=== PATIENT | male | born 1955 | race Caucasian/White ===

== ENCOUNTER 2021-04-12 13:54 | Inpatient (IN) | payer MEDICAID ==
[~2021-04-12] VITALS: Ht 167.6 cm; Wt 73.5 kg
--- NOTE | 2021-04-12 14:36 | NUR ---
DR Judd at the bedside for MSE.
[2021-04-12] MEDS ORDERED: CLOP75TA15 PO (15:36)
[2021-04-12] MEDS ORDERED: GABA-532 PO (15:36)
[2021-04-12] MEDS ORDERED: DOCU250C14 PO (15:36)
[2021-04-12] MEDS ORDERED: THIA100T13 PO (15:36)
[2021-04-12] MEDS ORDERED: BISA10SU61 RC (15:36)
[2021-04-12] MEDS ORDERED: CHOL500050 PO (15:36)
[2021-04-12] MEDS ORDERED: IPRA3AMP23 IH ×2 (15:36→15:37)
[2021-04-12] MEDS ORDERED: DILT30TA2 PO (15:37)
[2021-04-12] MEDS ORDERED: ATOR40TA PO (15:37)
[2021-04-12] MEDS ORDERED: PREG75CA PO (15:37)
[2021-04-12] MEDS ORDERED: INSU100C SQ (15:37)
[2021-04-12] MEDS ORDERED: NPH,100V SQ (15:37)
[2021-04-12] MEDS ORDERED: MULT-213 PO (15:37)
[2021-04-12] MEDS ORDERED: LISI2.5T2 PO (15:37)
[2021-04-12] MEDS ORDERED: MAGN400O6 PO (15:37)
[2021-04-12] MEDS ORDERED: DEXT15DR6 EACHEYE (15:37)
[2021-04-12] MEDS ORDERED: POLY17PO4 PO (15:37)
[2021-04-12] MEDS ORDERED: MELA3TAB41 PO (15:37)
[2021-04-12] MEDS ORDERED: DIPH25CA83 PO (15:37)
[2021-04-12] MEDS ORDERED: CHLO473M3 MM (15:37)
[2021-04-12] MEDS ORDERED: ONDA4TAB5 PO (15:37)
[2021-04-12] MEDS ORDERED: FERROUS SULFATE PO (15:37)
[2021-04-12] MEDS ORDERED: IBUP-1953 PO (15:37)
[2021-04-12] MEDS ORDERED: HYDR-4209 PO (15:37)
[2021-04-12] MEDS ORDERED: FAMO20TA8 PO (15:37)
[2021-04-12] MEDS ORDERED: FURO-152 PO (15:37)
[2021-04-12 15:57] LABS: ABG HCO3 26.5 mmol/L; ABG PCO2 45.5 mmHg (35.0-45.0); ABG PH 7.383 (7.350-7.450); ABG PO2 72.8 mmHg (75.0-100.0); ABG SITE RIGHT RADIAL; ABG TOTAL HEMOGLOBIN 13.3 G/dL (13.5-18.0); COHb 0.8 % (0.5-1.5); MetHb 0.3 % (0.0-1.5); O2Hb 93.6 % (94.0-97.0); VENT MODE Room Air
[2021-04-12 16:01] LABS: CREATININE 0.9 mg/dL (0.6-1.3); POTASSIUM 3.7 mmol/L (3.5-5.1)
[2021-04-12 16:05] LABS: HEMATOCRIT 37.7 % (36.7-47.1); MEAN CORPUSCULAR HEMOGLOBIN 32.1 uug (23.8-33.4); MEAN CORPUSCULAR VOLUME 95.1 fL (73.0-96.2); PLATELET COUNT (AUTO) 240 K/uL (152-348)
--- NOTE | 2021-04-12 16:07 | NUR ---
Pt agreed and signed consent for CT of neck w/ contrast, placed in the chart.
[2021-04-12 16:13] LABS: BILIRUBIN,DIRECT 0.1 mg/dL (0.0-0.2); BILIRUBIN,TOTAL 0.3 mg/dL (0.2-1.0); TOTAL PROTEIN, SERUM 7.7 g/dL (6.4-8.2)
[2021-04-12] MEDS ORDERED: IV NORMAL SALINE 250 ML IV ONE (16:14)
[2021-04-12] MEDS ORDERED: SWABABLE VALVE TRANSFER SET EA MC ONE (16:14)
[2021-04-12] MEDS ORDERED: IOHEXOL 300MG/ML 100 ML INFUS..BTL ONE (16:14)
--- NOTE | 2021-04-12 17:08 | NUR ---
Urine collected and sent to LAB.
[2021-04-12 17:37] LABS: *BILIRUBIN,URIN NEGATIVE (NEGATIVE); *BLOOD, URINE 2+ (NEGATIVE); *CLARITY,URINE SLIGHTLY CLOUDY (CLEAR); *COLOR,URINE LIGHT YELLOW (YELLOW); *KETONES,URINE NEGATIVE (NEGATIVE); *UROBILINOGEN,URINE 0.2 E.U./dl (NORMAL); PH,URINE 7.5 (5.0-8.0); UGLUCOSE NEGATIVE (NEGATIVE)
[2021-04-12 17:38] LABS: LEUKOCYTE ESTERASE ,URINE 4+ (NEGATIVE); NITRITE, URINE POSITIVE (NEGATIVE)
[2021-04-12 18:13] LABS: BACTERIA,URINE MANY /HPF (NONE SEEN); MUCUS,URINE FEW /LPF (0-FEW); RBC,URINE 50-80 /HPF (0-3); SQUAMOUS EPITHELIAL CELL,UR FEW /HPF (NONE SEEN); URINE AMORPHOUS PHOSPHATES MANY /HPF; WBC,URINE TNTC /HPF (0-3)
[2021-04-12] MEDS ORDERED: CEFEPIME HCL 2 G in IV DEXTROSE 5% 100 ML IV ONE (19:00)
[2021-04-12 20:00] VITALS: BP 142/68
[2021-04-12] MEDS ORDERED: ONDANSETRON 4 MG/2 ML VIAL IV PRN (20:00)
[2021-04-12] MEDS ORDERED: MAGNESIUM HYDROXIDE 30 ML LIQUID UDC PO PRN ×2 (20:00→21:30)
[2021-04-12] MEDS ORDERED: ZOLPIDEM 5 MG TABLET PO PRN (20:00)
[2021-04-12] MEDS ORDERED: ACETAMINOPHEN 325 MG TABLET PO PRN (20:00)
[2021-04-12] MEDS ORDERED: Z GUARD REMEDY PASTE 57 GM TUBE TOP PRN (20:00)
[2021-04-12] MEDS: CEFTRIAXONE 1 G in IV DEXTROSE 5% 50 ML IV SCH (21:00)
[2021-04-12] MEDS: AZITHROMYCIN IV 500 MG in IV DEXTROSE 5% 250 ML IV SCH (21:00)
[2021-04-12] MEDS ORDERED: ONDANSETRON HCL 4 MG TABLET PO PRN (21:30)
[2021-04-12] MEDS ORDERED: MELATONIN 3 MG TABLET PO PRN (21:30)
[2021-04-12] MEDS ORDERED: MIRALAX 17 GM POWD.PACK PO PRN (21:30)
[2021-04-12] MEDS ORDERED: BISACODYL 10 MG SUPP.RECT RC PRN (21:30)
[2021-04-12] MEDS ORDERED: diphenhydrAMINE 25 MG CAP PO PRN (21:30)
[2021-04-12] MEDS ORDERED: IBUPROFEN 400 MG TABLET PO PRN (21:30)
[2021-04-13] VITALS: BP 148/60
[2021-04-13] MEDS ORDERED: CEFEPIME HCL 1 G VIAL ONE (02:48)
[2021-04-13 04:00] VITALS: BP 143/74
[2021-04-13 06:35] LABS: MEAN CORPUSCULAR HEMOGLOBIN 31.7 uug (23.8-33.4); MEAN CORPUSCULAR VOLUME 94.6 fL (73.0-96.2); PLATELET COUNT (AUTO) 223 K/uL (152-348)
[2021-04-13] MEDS: PREGABALIN 25 MG CAPSULE PO SCH ×3 (07:00→23:10)
[2021-04-13 07:02] LABS: THYROID STIMULATING HORMONE 1.86 mIU/mL (0.358-3.740)
[2021-04-13 07:04] LABS: CREATININE 0.9 mg/dL (0.6-1.3); MAGNESIUM 2.1 mg/dL (1.8-2.4); PHOSPHOROUS 4.3 mg/dL (2.5-4.9); POTASSIUM 3.7 mmol/L (3.5-5.1)
[2021-04-13] MEDS: PANTOPRAZOLE SODIUM 40 MG TABLET.DR PO SCH (07:04)
--- NOTE | 2021-04-13 07:09 | NUR ---
SHIFT NOTES: PT IS ALERT AND ORIENTED X4. PT CAME FROM ER WITH DX OF UTI, AND TRACHEAL STENOSIS. PT IS ON 02 2L NC TOLERATING WELL. PT IS ON TELEMONITOR WHICH SHOWS SB BUT NO SIGNS OF DISTRESS NOTED. PT HAS IV OF D51/2 NS INFUSING AT 100ML AND HOUR. TOLERATING WELL. RT AND LT BUTTOCK HAS OLD SCARS. PICTURE WERE TAKEN NO SIGNS ULCER. NOTED.
--- NOTE | 2021-04-13 07:30 | NUR ---
Sleeping. O2 at 2L/NC. NPO maintained, pending ENT consult/procedure
[2021-04-13] MEDS ORDERED: INSULIN NPH 1,000 UNITS/10 ML VIAL SQ SCH (09:00)
[2021-04-13] MEDS ORDERED: FERROUS SULFATE PO SCH (09:00)
[2021-04-13] MEDS: DILTIAZEM HCL 30 MG TABLET PO SCH ×5 (09:00→20:38)
[2021-04-13] MEDS: GABAPENTIN 100 MG CAPSULE PO SCH ×3 (09:00→17:44)
[2021-04-13 12:00] VITALS: BP 108/54
[2021-04-13] MEDS: IV D5 1/2 NS 1000 ML 1,000 ML IV PRN ×2 (12:30→19:00)
--- NOTE | 2021-04-13 12:30 | NUR ---
ENT consult as out patient per Dr. Villarreal. ST eval done at bedside, soft diet ordered with precaution taught to patient. Able to eat lunch with no coughing.
[2021-04-13] MEDS: DOCUSATE SODIUM 250 MG CAPSULE PO SCH ×2 (12:35→20:42)
[2021-04-13] MEDS: INSULIN NPH 1,000 UNITS/10 ML VIAL SQ SCH ×2 (12:35→17:46)
[2021-04-13] MEDS: FERROUS SULFATE 300 MG/5 ML LIQUID UDC PO SCH (12:35)
[2021-04-13] MEDS: MULTIVIT, IRON, MIN NO. 8, FA TABLET PO SCH (12:35)
[2021-04-13] MEDS: CHLORHEXIDINE GLUCONATE 15 ML MOUTHWASH MM SCH ×2 (12:35→17:49)
[2021-04-13] MEDS: THIAMINE HCL 100 MG TABLET PO SCH (12:36)
[2021-04-13] MEDS: FAMOTIDINE 20 MG TABLET PO SCH ×2 (12:36→20:38)
[2021-04-13] MEDS: CHOLECALCIFEROL 1,000 UNIT TABLET PO SCH (12:36)
[2021-04-13] MEDS: FUROSEMIDE 20 MG TABLET PO SCH (12:36)
[2021-04-13] MEDS: LISINOPRIL 5 MG TABLET PO SCH (12:42)
[2021-04-13] MEDS ORDERED: POLYVINYL ALCOHOL OPHT DROPS 15 ML BOTTLE EACHEYE PRN (15:45)
[2021-04-13] MEDS ORDERED: HOME MED MISCELLANEOUS XX SCH ×2 (15:45)
[2021-04-13 16:00] VITALS: BP 136/77
[2021-04-13] MEDS ORDERED: IPRATROPIUM BROMIDE 0.5 MG/2.5 ML NEBU NEB PRN (16:00)
[2021-04-13] MEDS ORDERED: ALBUTEROL SULFATE 2.5 MG/3 ML NEBU NEB PRN (16:00)
[2021-04-13] MEDS ORDERED: DEXTROSE 50% 50 ML DISP.SYRIN IV PRN (17:45)
[2021-04-13] MEDS: BLOOD SUGAR DIAGNOSTIC 1 EACH STRIP VI SCH ×2 (18:47→20:48)
--- NOTE | 2021-04-13 18:48 | NUR ---
Eating well, sitting at the edge of bed. Not in distress. Afebrile
--- NOTE | 2021-04-13 19:50 | NUR ---
PATIENT ALERT ORIENTED, NO SOB NO CHEST PAIN, NO COMPLAIN OF PAIN, TELE MONITOR SINUS RAHEEM/SINUS RHYTHM, USES URINAL, NO COUGHING NOTED, CONT HHN TX DONE BY RT TOLERATE WELL. CONT TO MONITOR.
[2021-04-13 20:11] VITALS: BP 120/70
[2021-04-13] MEDS: CEFTRIAXONE 1 G in IV DEXTROSE 5% 50 ML IV SCH (20:33)
[2021-04-13] MEDS: AZITHROMYCIN IV 500 MG in IV DEXTROSE 5% 250 ML IV SCH (20:37)
[2021-04-13] MEDS: ATORVASTATIN 40 MG TABLET PO SCH (20:38)
[2021-04-13] MEDS: ALBUTEROL SULFATE 2.5 MG/3 ML NEBU NEB SCH (21:10)
[2021-04-13] MEDS: IPRATROPIUM BROMIDE 0.5 MG/2.5 ML NEBU NEB SCH (21:10)
[2021-04-14 00:15] VITALS: BP 131/53
[2021-04-14] MEDS: IPRATROPIUM BROMIDE 0.5 MG/2.5 ML NEBU NEB SCH ×4 (01:45→19:21)
[2021-04-14] MEDS: ALBUTEROL SULFATE 2.5 MG/3 ML NEBU NEB SCH ×4 (01:45→19:21)
[2021-04-14] MEDS: HYDROCODONE/APAP 5-325MG TABLET PO PRN ×3 (02:17→20:47)
[2021-04-14 04:51] VITALS: BP 156/63
[2021-04-14] MEDS: PREGABALIN 25 MG CAPSULE PO SCH ×3 (05:37→22:00)
[2021-04-14] MEDS: PANTOPRAZOLE SODIUM 40 MG TABLET.DR PO SCH (06:05)
[2021-04-14] MEDS: BLOOD SUGAR DIAGNOSTIC 1 EACH STRIP VI SCH ×4 (06:06→20:49)
--- NOTE | 2021-04-14 07:05 | NUR ---
PATIENT ALERT ORIENTED, NO SOB NO CHEST PAIN, TELE MONITOR SINUS RYTHYM SINUS RAHEEM. PATIENT HAS NO S/.S OF HYPO/HYPERGYLCEMIA NOTED, WITH EPISODE OF PAIN ON LOWER EXTREMITIES MEDICATED FOR PAIN. PATIENT ABLE TO SWALLOW PILLS ONE AT THE TIME, CONT TO MONITOR.
[2021-04-14 07:10] LABS: HEMATOCRIT 36.6 % (36.7-47.1); MEAN CORPUSCULAR HEMOGLOBIN 32.9 uug (23.8-33.4); MEAN CORPUSCULAR VOLUME 96.9 fL (73.0-96.2); PLATELET COUNT (AUTO) 220 K/uL (152-348)
[2021-04-14 08:28] LABS: CREATININE 0.8 mg/dL (0.6-1.3); MAGNESIUM 2.1 mg/dL (1.8-2.4); PHOSPHOROUS 4.6 mg/dL (2.5-4.9)
[2021-04-14] MEDS: INSULIN NPH 1,000 UNITS/10 ML VIAL SQ SCH ×2 (09:00→16:54)
[2021-04-14 09:08] VITALS: BP 142/67
[2021-04-14] MEDS: FERROUS SULFATE 300 MG/5 ML LIQUID UDC PO SCH (09:30)
[2021-04-14] MEDS: DOCUSATE SODIUM 250 MG CAPSULE PO SCH ×2 (09:31→20:32)
[2021-04-14] MEDS: GABAPENTIN 100 MG CAPSULE PO SCH ×3 (09:31→16:51)
[2021-04-14] MEDS: LISINOPRIL 5 MG TABLET PO SCH (09:31)
[2021-04-14] MEDS: CHOLECALCIFEROL 1,000 UNIT TABLET PO SCH (09:31)
[2021-04-14] MEDS: THIAMINE HCL 100 MG TABLET PO SCH (09:31)
[2021-04-14] MEDS: DILTIAZEM HCL 30 MG TABLET PO SCH ×4 (09:40→20:33)
[2021-04-14] MEDS: FAMOTIDINE 20 MG TABLET PO SCH ×2 (09:42→20:33)
[2021-04-14] MEDS: FUROSEMIDE 20 MG TABLET PO SCH (09:42)
[2021-04-14] MEDS: MULTIVIT, IRON, MIN NO. 8, FA TABLET PO SCH (09:42)
[2021-04-14] MEDS: CHLORHEXIDINE GLUCONATE 15 ML MOUTHWASH MM SCH ×2 (09:42→16:51)
[2021-04-14 10:47] VITALS: BP 142/67
[2021-04-14 11:59] VITALS: BP 130/67
[2021-04-14] MEDS: INSULIN REGULAR, HUMAN 300 UNIT/3 ML VIAL SQ PRN ×2 (12:08→16:56)
[2021-04-14] MEDS: IV D5 1/2 NS 1000 ML 1,000 ML IV PRN (17:08)
--- NOTE | 2021-04-14 18:45 | NUR ---
Patient in bed, Urdu speaking, alert and oriented x 4, pleasant and cooperative upon assessment. IV site on left hand intact. Patient in oxygen via 2L nasal cannula. Patient refused Novolin N 15 units in the morning and regular insulin 2 units lunch time. Notified Dr. Villarreal and awaiting for response. Daughter also made aware.
--- NOTE | 2021-04-14 19:45 | NUR ---
Patient in bed alert and verbally responsive.HOB elevated.Denies SOB .O2 at 2LPM via nc .IV on left wrist patent and intact with IVf infusing well.Received new order from noted and carried out.
[2021-04-14] MEDS: CEFTRIAXONE 1 G in IV DEXTROSE 5% 50 ML IV SCH (20:30)
[2021-04-14 20:32] VITALS: BP 135/69
[2021-04-14] MEDS: ATORVASTATIN 40 MG TABLET PO SCH (20:32)
[2021-04-14] MEDS ORDERED: AZITHROMYCIN 250 MG TABLET PO SCH (21:00)
[2021-04-15 00:10] VITALS: BP 115/63
[2021-04-15] MEDS: IPRATROPIUM BROMIDE 0.5 MG/2.5 ML NEBU NEB SCH ×4 (00:36→19:26)
[2021-04-15] MEDS: ALBUTEROL SULFATE 2.5 MG/3 ML NEBU NEB SCH ×4 (00:36→19:26)
[2021-04-15 04:44] VITALS: BP 124/70
[2021-04-15] MEDS: PREGABALIN 25 MG CAPSULE PO SCH ×3 (05:09→21:01)
--- NOTE | 2021-04-15 05:13 | NUR ---
Patient awake in no apparent distress noted. No BM for 3 days per patient. Refused Miralax and MOM however patient wants dulcolax supp .Patient had large BM after suppository given. Patient ambulates to bathroom.Due meds given but refused lyrica last night .Risk and benefits explained 3x.Patient still refused. All needs anticipated and met accordingly.
[2021-04-15] MEDS: PANTOPRAZOLE SODIUM 40 MG TABLET.DR PO SCH (06:18)
[2021-04-15] MEDS: IV D5 1/2 NS 1000 ML 1,000 ML IV PRN ×2 (06:33→19:09)
[2021-04-15] MEDS: DILTIAZEM HCL 30 MG TABLET PO SCH ×4 (08:48→20:59)
[2021-04-15] MEDS: FERROUS SULFATE 300 MG/5 ML LIQUID UDC PO SCH (08:48)
[2021-04-15] MEDS: FUROSEMIDE 20 MG TABLET PO SCH (08:48)
[2021-04-15] MEDS: DOCUSATE SODIUM 250 MG CAPSULE PO SCH ×2 (08:48→21:00)
[2021-04-15] MEDS: GABAPENTIN 100 MG CAPSULE PO SCH ×3 (08:50→17:08)
[2021-04-15] MEDS: FAMOTIDINE 20 MG TABLET PO SCH ×2 (08:50→21:00)
[2021-04-15] MEDS: MULTIVIT, IRON, MIN NO. 8, FA TABLET PO SCH (08:50)
[2021-04-15] MEDS: CHOLECALCIFEROL 1,000 UNIT TABLET PO SCH (08:50)
[2021-04-15] MEDS: LISINOPRIL 5 MG TABLET PO SCH (08:51)
[2021-04-15] MEDS: THIAMINE HCL 100 MG TABLET PO SCH (08:51)
[2021-04-15] MEDS: BLOOD SUGAR DIAGNOSTIC 1 EACH STRIP VI SCH (08:58)
[2021-04-15] MEDS: CHLORHEXIDINE GLUCONATE 15 ML MOUTHWASH MM SCH ×2 (09:00→17:09)
[2021-04-15 11:29] VITALS: BP 133/70
[2021-04-15] MEDS: HYDROCODONE/APAP 5-325MG TABLET PO PRN ×2 (11:30→21:08)
[2021-04-15 15:58] VITALS: BP 128/56
[2021-04-15] MEDS: CEphaleXIN 500 MG CAPSULE PO SCH (17:08)
--- NOTE | 2021-04-15 18:48 | NUR ---
Patient resting in bed. AOx4. On 2L O2 via NC, saturating at 98-100%. With Left wrist #22 IV access with D5 1/2NS running at 75cc/hr. No signs of acute distress. Patient complained of pain on right knee, North PRN given per order. Patient expressed relief. Call light within reach. Bed alarm on and bed locked in position for safety. Will endorse to incoming shift for continuity of care.
--- NOTE | 2021-04-15 19:30 | NUR ---
Received pt in bed, awake and verbally responsive, able to make needs known. No signs of respiratory distress. No pain or discomfort reported. NSR on tele. IVF infusing well on L wrist. Safety measures initiated, call light within reach.
[2021-04-15 20:17] VITALS: BP 117/69
[2021-04-15] MEDS: ATORVASTATIN 40 MG TABLET PO SCH (21:00)
[2021-04-16 00:09] VITALS: BP 113/59
[2021-04-16] MEDS: IPRATROPIUM BROMIDE 0.5 MG/2.5 ML NEBU NEB SCH ×2 (00:37→07:25)
[2021-04-16] MEDS: ALBUTEROL SULFATE 2.5 MG/3 ML NEBU NEB SCH ×2 (00:37→07:25)
[2021-04-16 04:21] VITALS: BP 111/45
[2021-04-16] MEDS: PREGABALIN 25 MG CAPSULE PO SCH (06:20)
[2021-04-16] MEDS: CEphaleXIN 500 MG CAPSULE PO SCH (06:20)
[2021-04-16] MEDS: PANTOPRAZOLE SODIUM 40 MG TABLET.DR PO SCH (06:20)
[2021-04-16 06:37] LABS: HEMATOCRIT 38.5 % (36.7-47.1); MEAN CORPUSCULAR HEMOGLOBIN 32.6 uug (23.8-33.4); MEAN CORPUSCULAR VOLUME 95.8 fL (73.0-96.2); PLATELET COUNT (AUTO) 220 K/uL (152-348)
[2021-04-16 06:49] LABS: MAGNESIUM 2.1 mg/dL (1.8-2.4); PHOSPHOROUS 4.2 mg/dL (2.5-4.9); POTASSIUM 4.1 mmol/L (3.5-5.1)
--- NOTE | 2021-04-16 06:53 | NUR ---
Pt slept through the night, tolerated due medications well. No signs of acute distress. Sinus Koffi on Tele. IVF infusing well on L wrist. Breathing treatment administered by RT. Repositioning done as needed. Safety measures maintained at all times. All needs attended to and met.
[2021-04-16] MEDS: MULTIVIT, IRON, MIN NO. 8, FA TABLET PO SCH (08:08)
[2021-04-16] MEDS: BLOOD SUGAR DIAGNOSTIC 1 EACH STRIP VI SCH (08:08)
[2021-04-16] MEDS: GABAPENTIN 100 MG CAPSULE PO SCH (08:08)
[2021-04-16] MEDS: THIAMINE HCL 100 MG TABLET PO SCH (08:08)
[2021-04-16] MEDS: FAMOTIDINE 20 MG TABLET PO SCH (08:08)
[2021-04-16] MEDS: DOCUSATE SODIUM 250 MG CAPSULE PO SCH (08:08)
[2021-04-16] MEDS: CHOLECALCIFEROL 1,000 UNIT TABLET PO SCH (08:09)
[2021-04-16] MEDS: FUROSEMIDE 20 MG TABLET PO SCH (08:09)
[2021-04-16] MEDS: CHLORHEXIDINE GLUCONATE 15 ML MOUTHWASH MM SCH (08:21)
[2021-04-16] MEDS: DILTIAZEM HCL 30 MG TABLET PO SCH (09:00)
[2021-04-16] MEDS ORDERED: FERROUS SULFATE 325 MG TABEC PO SCH (09:00)
[2021-04-16] MEDS: IV D5 1/2 NS 1000 ML 1,000 ML IV PRN (09:19)
[2021-04-16] MEDS ORDERED: CEPH500C2 PO (09:56)
[2021-04-16] MEDS: LISINOPRIL 5 MG TABLET PO SCH (11:42)
[2021-04-16 11:55] VITALS: BP 129/73
--- NOTE | 2021-04-16 12:16 | NUR ---
dc orders received noted and carried out,dc heplock per md orders rn [facility]and pt.pt left the facility via ambulances in stable condition
== END 2021-04-16 12:15 | DRG 143 ==
LOC: ER 13:54 → TELE3 19:02
PROVIDERS: ADMIT Student in an Organized Health Care Education/Training Program; ATTEND Student in an Organized Health Care Education/Training Program
DX: J95.03 Malfunction of tracheostomy stoma (principal); J96.20 Acute and chronic respiratory failure, unspecified whether with hypoxia or hypercapnia; L89.159 Pressure ulcer of sacral region, unspecified stage; L89.329 Pressure ulcer of left buttock, unspecified stage; L89.319 Pressure ulcer of right buttock, unspecified stage; I69.391 Dysphagia following cerebral infarction; N39.0 Urinary tract infection, site not specified; R13.10 Dysphagia, unspecified; Z20.822 Contact with and (suspected) exposure to COVID-19; E78.5 Hyperlipidemia, unspecified; I10 Essential (primary) hypertension; E11.9 Type 2 diabetes mellitus without complications; Y83.8 Other surgical procedures as the cause of abnormal reaction of the patient, or of later complication, without mention of misadventure at the time of the procedure; Y92.009 Unspecified place in unspecified non-institutional (private) residence as the place of occurrence of the external cause; G47.00 Insomnia, unspecified; Z79.4 Long term (current) use of insulin
CPT/HCPCS: 36415; 36600; 70030-TC; 70491; 71045; 83605; 83735; 84100; 84443; 85025; 87040; 87077; 87086; 87400; 93005; 94640; 94664; A4663; G0378; J0456; J0692; J0696; J1815; J3490; J3590; J7050; J7060; Q0144; Q9967

== ENCOUNTER 2021-05-19 09:22 | Inpatient (IN) | payer MEDICAID, OTHER ==
[~2021-05-19] VITALS: Ht 167.6 cm; Wt 74.8 kg
[~2021-05-19 09:22] MED LIST: ATOR40TA PO; BISA10SU61 RC; CEPH500C2 PO; CHLO473M3 MM; CHOL500050 PO; CLOP75TA15 PO; DEXT15DR6 EACHEYE; DILT30TA2 PO; DIPH25CA83 PO; DOCU250C14 PO; FAMO20TA8 PO; FERROUS SULFATE PO; FURO-152 PO; GABA-532 PO; HYDR-4209 PO; IBUP-1953 PO; INSU100C SQ; IPRA3AMP23 IH; LISI2.5T14 PO; MAGN400O6 PO; MELA3TAB41 PO; MULT-213 PO; NPH,100V SQ; ONDA4TAB5 PO; POLY17PO4 PO; PREG75CA PO; THIA100T13 PO
[2021-05-19] MEDS ORDERED: ALBUTEROL SULFATE 2.5 MG/ 0.5 ML NEBU NEB ONE (09:45)
[2021-05-19 09:56] LABS: HEMATOCRIT 37.9 % (36.7-47.1); MEAN CORPUSCULAR HEMOGLOBIN 32.9 uug (23.8-33.4); MEAN CORPUSCULAR VOLUME 95.7 fL (73.0-96.2); PLATELET COUNT (AUTO) 223 K/uL (152-348)
[2021-05-19] MEDS ORDERED: ALBUTEROL SULFATE 2.5 MG/3 ML NEBU ONE (10:03)
[2021-05-19 10:04] LABS: CREATININE 0.9 mg/dL (0.6-1.3); POTASSIUM 3.8 mmol/L (3.5-5.1)
[2021-05-19 10:10] LABS: BILIRUBIN,DIRECT 0.1 mg/dL (0.0-0.2); BILIRUBIN,TOTAL 0.4 mg/dL (0.2-1.0); TOTAL PROTEIN, SERUM 7.5 g/dL (6.4-8.2)
[2021-05-19 10:55] LABS: *BILIRUBIN,URIN NEGATIVE (NEGATIVE); *BLOOD, URINE NEGATIVE (NEGATIVE); *CLARITY,URINE CLEAR (CLEAR); *COLOR,URINE YELLOW (YELLOW); *KETONES,URINE NEGATIVE (NEGATIVE); *UROBILINOGEN,URINE 0.2 E.U./dl (NORMAL); LEUKOCYTE ESTERASE ,URINE NEGATIVE (NEGATIVE); NITRITE, URINE NEGATIVE (NEGATIVE); UGLUCOSE NEGATIVE (NEGATIVE)
[2021-05-19] MEDS ORDERED: levoFLOXacin 750 MG/D5W 150 ML PIGGYBACK IV ONE (11:30)
[2021-05-19] MEDS ORDERED: levoFLOXacin 750MG/D5W 150 ML IV ONE (11:44)
[2021-05-19] MEDS ORDERED: BENZONATATE 100 MG CAPSULE PO ONE (12:45)
[2021-05-19] MEDS ORDERED: BENZONATATE 100 MG CAPSULE ONE (12:53)
--- NOTE | 2021-05-19 14:03 | NUR ---
Pt resting in bed, no complaints, no distress noted. Pt states that medication helped his choking/cough. Gave pt lunch tray.
--- NOTE | 2021-05-19 14:41 | NUR ---
Gave report to Sommer BRITTON
--- NOTE | 2021-05-19 15:15 | NUR ---
ADMITTED FROM [facility] VIA ER A 65 YO MALE WITH ADMITTING DX OF PNEUMONIA AWAKE ALERT AND VERBALLY RESPONSIVE, ABLE TO PARTICIPATE WITH ADMISSION ASSESSMENT. SR ON MONITOR, WILL NOTIFY HOSPITALIST OF ADMISSION
[2021-05-19] MEDS ORDERED: ONDANSETRON 4 MG/2 ML VIAL IV PRN (15:45)
[2021-05-19] MEDS ORDERED: HYDROCODONE/APAP 5-325MG TABLET PO PRN (15:45)
[2021-05-19] MEDS ORDERED: IBUPROFEN 400 MG TABLET PO PRN (15:45)
[2021-05-19] MEDS ORDERED: MIRALAX 17 GM POWD.PACK PO PRN (15:45)
[2021-05-19] MEDS ORDERED: BISACODYL 10 MG SUPP.RECT RC PRN (15:45)
[2021-05-19] MEDS ORDERED: ACETAMINOPHEN 325 MG TABLET PO PRN (15:45)
[2021-05-19] MEDS ORDERED: DEXTROSE 50% 50 ML DISP.SYRIN IV PRN (15:45)
[2021-05-19] MEDS ORDERED: MAGNESIUM HYDROXIDE 30 ML LIQUID UDC PO PRN (15:45)
[2021-05-19] MEDS ORDERED: MELATONIN 3 MG TABLET PO PRN (15:45)
[2021-05-19] MEDS ORDERED: diphenhydrAMINE 25 MG CAP PO PRN (15:45)
[2021-05-19 16:00] VITALS: BP 143/71
[2021-05-19] MEDS ORDERED: PIPERACILLIN SODIUM/TAZOBACTAM 3.375 G in IV DEXTROSE 5% 50 ML IV ONE (17:00)
[2021-05-19] MEDS: BLOOD SUGAR DIAGNOSTIC 1 EACH STRIP VI SCH ×2 (17:07→20:46)
[2021-05-19] MEDS: INSULIN NPH 1,000 UNITS/10 ML VIAL SQ SCH (17:09)
[2021-05-19] MEDS: INSULIN REGULAR, HUMAN 300 UNIT/3 ML VIAL SQ PRN (17:12)
[2021-05-19 20:15] VITALS: BP 102/60
[2021-05-19] MEDS: DOCUSATE SODIUM 100 MG CAPSULE PO SCH (20:42)
[2021-05-19] MEDS: FAMOTIDINE 20 MG TABLET PO SCH (20:42)
[2021-05-19] MEDS: CHLORHEXIDINE GLUCONATE 15 ML MOUTHWASH MM SCH (20:43)
[2021-05-19] MEDS ORDERED: DOCUSATE SODIUM 250 MG CAPSULE PO SCH (21:00)
[2021-05-19] MEDS ORDERED: ATORVASTATIN 40 MG TABLET PO SCH (21:00)
[2021-05-19] MEDS: PREGABALIN 25 MG CAPSULE PO SCH (21:28)
[2021-05-20 00:12] VITALS: BP 115/45
[2021-05-20] MEDS: PIPERACILLIN SODIUM/TAZOBACTAM 3.375 G in IV DEXTROSE 5% 100 ML IV SCH ×3 (00:40→16:18)
[2021-05-20 04:12] VITALS: BP 111/72
[2021-05-20] MEDS: PREGABALIN 25 MG CAPSULE PO SCH ×3 (06:05→21:27)
[2021-05-20 06:10] LABS: HEMATOCRIT 38.6 % (36.7-47.1); MEAN CORPUSCULAR HEMOGLOBIN 33.4 uug (23.8-33.4); MEAN CORPUSCULAR VOLUME 95.6 fL (73.0-96.2); PLATELET COUNT (AUTO) 225 K/uL (152-348)
[2021-05-20] MEDS: BLOOD SUGAR DIAGNOSTIC 1 EACH STRIP VI SCH ×2 (06:12→11:31)
[2021-05-20 06:25] LABS: BILIRUBIN,TOTAL 0.4 mg/dL (0.2-1.0); MAGNESIUM 2.1 mg/dL (1.8-2.4); PHOSPHOROUS 4.6 mg/dL (2.5-4.9); POTASSIUM 4.1 mmol/L (3.5-5.1); TOTAL PROTEIN, SERUM 7.4 g/dL (6.4-8.2)
[2021-05-20 06:29] LABS: THYROID STIMULATING HORMONE 1.084 mIU/mL (0.358-3.740)
[2021-05-20] MEDS: FAMOTIDINE 20 MG TABLET PO SCH ×2 (08:28→20:49)
[2021-05-20] MEDS: CLOPIDOGREL 75 MG TABLET PO SCH (08:28)
[2021-05-20] MEDS: DOCUSATE SODIUM 100 MG CAPSULE PO SCH ×2 (08:28→20:49)
[2021-05-20] MEDS: FUROSEMIDE 20 MG TABLET PO SCH (08:28)
[2021-05-20] MEDS: CHOLECALCIFEROL 1,000 UNIT TABLET PO SCH (08:28)
[2021-05-20] MEDS: MULTIVIT, IRON, MIN NO. 8, FA TABLET PO SCH (08:28)
[2021-05-20] MEDS: LISINOPRIL 5 MG TABLET PO SCH (08:33)
[2021-05-20] MEDS: INSULIN NPH 1,000 UNITS/10 ML VIAL SQ SCH ×2 (08:36→16:19)
[2021-05-20] MEDS: CHLORHEXIDINE GLUCONATE 15 ML MOUTHWASH MM SCH ×2 (08:37→20:48)
[2021-05-20] MEDS: IPRATROPIUM BROMIDE 0.5 MG/2.5 ML NEBU NEB PRN (10:30)
[2021-05-20] MEDS: ALBUTEROL SULFATE 2.5 MG/ 0.5 ML NEBU NEB PRN (10:30)
--- NOTE | 2021-05-20 10:30 | NUR ---
HHN TX given by RT secondary pt c/o SOB o2 sat 95% on R/A. 1045 HHN Effective. PT states " im breathing better".
[2021-05-20 11:17] VITALS: BP 145/75
[2021-05-20] MEDS: INSULIN REGULAR, HUMAN 300 UNIT/3 ML VIAL SQ PRN (11:35)
[2021-05-20] MEDS: BENZONATATE 100 MG CAPSULE PO PRN ×2 (11:38→20:49)
--- NOTE | 2021-05-20 12:00 | NUR ---
Notified Dr middleton pt coughing and c/o lower back pain - tesselon and lumbar spine ordered.
[2021-05-20 15:12] VITALS: BP 128/73
--- NOTE | 2021-05-20 18:00 | NUR ---
Tesselon less cough noted. Pt is in no acute distress.
[2021-05-20 20:15] VITALS: BP 157/79
[2021-05-20] MEDS: ATORVASTATIN 10 MG TABLET PO SCH (20:49)
[2021-05-21 00:06] VITALS: BP 123/60
[2021-05-21] MEDS: PIPERACILLIN SODIUM/TAZOBACTAM 3.375 G in IV DEXTROSE 5% 100 ML IV SCH ×3 (01:10→16:21)
[2021-05-21 04:15] VITALS: BP 121/73
[2021-05-21] MEDS: PREGABALIN 25 MG CAPSULE PO SCH ×3 (05:48→21:05)
[2021-05-21 06:27] LABS: HEMATOCRIT 39.3 % (36.7-47.1); MEAN CORPUSCULAR HEMOGLOBIN 32.9 uug (23.8-33.4); MEAN CORPUSCULAR VOLUME 95.7 fL (73.0-96.2); PLATELET COUNT (AUTO) 242 K/uL (152-348)
[2021-05-21 06:48] LABS: CREATININE 1.1 mg/dL (0.6-1.3); MAGNESIUM 2.2 mg/dL (1.8-2.4); PHOSPHOROUS 5.1 mg/dL (2.5-4.9); POTASSIUM 3.9 mmol/L (3.5-5.1)
--- NOTE | 2021-05-21 06:51 | NUR ---
Pt in no acute distress. Tolerated all medications given. Offered to give cough medication and a breathing treatment this AM but patient states that he will wait till later. Denies pain or SOB. Safety and comfort provided, will endorse to day shift.
--- NOTE | 2021-05-21 07:35 | NUR ---
RECEIVED PT AWAKE, ALERT AND ORIENTEDX4. PT IN NO ACUTE DISTRESS. IV INTACT. SAFETY AND COMFORT PROVIDED. WILL CONTINUE TO MONITOR.
[2021-05-21] MEDS: DOCUSATE SODIUM 100 MG CAPSULE PO SCH ×2 (08:20→20:38)
[2021-05-21] MEDS: FUROSEMIDE 20 MG TABLET PO SCH (08:20)
[2021-05-21] MEDS: CHOLECALCIFEROL 1,000 UNIT TABLET PO SCH (08:20)
[2021-05-21] MEDS: CLOPIDOGREL 75 MG TABLET PO SCH (08:20)
[2021-05-21] MEDS: MULTIVIT, IRON, MIN NO. 8, FA TABLET PO SCH (08:21)
[2021-05-21] MEDS: FAMOTIDINE 20 MG TABLET PO SCH ×2 (08:21→20:38)
[2021-05-21 08:22] VITALS: BP 127/68
[2021-05-21] MEDS: CHLORHEXIDINE GLUCONATE 15 ML MOUTHWASH MM SCH ×2 (08:37→20:37)
[2021-05-21] MEDS: BENZONATATE 100 MG CAPSULE PO PRN ×2 (08:37→21:11)
[2021-05-21] MEDS: LISINOPRIL 5 MG TABLET PO SCH (08:43)
[2021-05-21] MEDS: INSULIN NPH 1,000 UNITS/10 ML VIAL SQ SCH ×2 (09:00→17:00)
--- NOTE | 2021-05-21 09:37 | NUR ---
AT 0837H TESSALON PERLES 100MG PRN GIVEN FOR PT COUGH. PT TOLERATED IT WELL. WILL CONTINUE TO MONITOR.
--- NOTE | 2021-05-21 10:21 | NUR ---
NONADMINISTERED NOVOLIN N . PT BLOOD GLUCOSE THAT WAS DRAWN BY LAB IS 82. NOTIFY DR. GIPSON IF WE NEED TO DO THE ROUTINE INSULIN NPH AND HAVE BLOOD SUGAR CHECK CONTINUE SINCE IT WAS DISCONTINUE. WAITING REPLY .
--- NOTE | 2021-05-21 11:00 | NUR ---
NOTIFIED BY MITCH GARCIA SUCTION PLATE ROLLER HAND TO CALL CHILD WATCH ATTENDANT TO HELP DAUGHTER OF PT TO HELP WITH RESOURCES REGARDING SURGEON FOR PT THROAT STRICTURE.
[2021-05-21 11:38] VITALS: BP 158/72
--- NOTE | 2021-05-21 14:30 | NUR ---
DR. GIPSON AWARE OF PT HAVING INSULIN NPH 15 UNITES. PER PT DOESN'T NEED ACCUCHECK PT IS EATING. PT IN NO ACUTE DISTRESS. WILL CONTINUE TO MONITOR.
[2021-05-21 16:00] VITALS: BP 128/70
--- NOTE | 2021-05-21 17:25 | NUR ---
PT REFUSED HIS NOVOLIN INSULIN 15U. TOOK BLOOD SUGAR CHECK AND ITS 114. PT STATED HE IS FINE, NO NEED FOR INSULIN AND HIS BLOOD SUGAR IS GOOD.
--- NOTE | 2021-05-21 18:06 | NUR ---
NOTIFY [employer] CASE MANGER REGARDING RADHA MEYER ORDER TO GET BELT LOOP MACHINE OPERATOR TO HELP DAUGHTER WITH RESOURCES REGARDING PT.
--- NOTE | 2021-05-21 18:08 | NUR ---
PT IN NO ACUTE DISTRESS. IV INTACT. PT OBSERVED COUGHING. PRESCRIBED MEDICATION GIVEN AND PT TOLERATED IT WELL. REGARDING PT NEEDING ACCUCHECK DR. GIPSON SAID HE KNOWS PT IS ON INSULIN NPH 15U AND LONG PT IS EATING NO NEED FOR ACCUCHECK. SAFETY AND COMFORT PROVIDED. WILL CONTINUE ENDORSE TO INCOMING NURSE FOR CONTINUITY OF CARE.
[2021-05-21 20:00] VITALS: BP 133/71
[2021-05-21] MEDS: ATORVASTATIN 10 MG TABLET PO SCH (20:38)
[2021-05-21] MEDS ORDERED: GUAIFENESIN/DEXTROMETHORPHAN 5 ML UDC PO PRN (22:00)
[2021-05-21] MEDS: IPRATROPIUM BROMIDE 0.5 MG/2.5 ML NEBU NEB PRN (22:18)
[2021-05-21] MEDS: ALBUTEROL SULFATE 2.5 MG/ 0.5 ML NEBU NEB PRN (22:18)
[2021-05-22] MEDS: PIPERACILLIN SODIUM/TAZOBACTAM 3.375 G in IV DEXTROSE 5% 100 ML IV SCH ×2 (00:13→09:30)
[2021-05-22] MEDS: PREGABALIN 25 MG CAPSULE PO SCH ×2 (05:31→14:20)
[2021-05-22 06:12] VITALS: BP 117/68
[2021-05-22 07:15] LABS: CREATININE 1.1 mg/dL (0.6-1.3); MAGNESIUM 2.3 mg/dL (1.8-2.4); PHOSPHOROUS 5.5 mg/dL (2.5-4.9); POTASSIUM 3.7 mmol/L (3.5-5.1)
[2021-05-22 07:27] LABS: HEMATOCRIT 39.3 % (36.7-47.1); MEAN CORPUSCULAR HEMOGLOBIN 32.6 uug (23.8-33.4); MEAN CORPUSCULAR VOLUME 94.6 fL (73.0-96.2); PLATELET COUNT (AUTO) 246 K/uL (152-348)
--- NOTE | 2021-05-22 08:00 | NUR ---
Received pt from shift production supervisor RN. pt is alert anbd oriented x 4. came in with complaint of cough and back pain, diagnosed with pneumonia. He is receiving breathing tx ads part of his plan of care, Room air. pt is ambulatory, continent, uses urinal. Has a R antecubital Iv access 20g. pt is stable, will continue to monitor.
[2021-05-22] MEDS ORDERED: INSULIN NPH 1,000 UNITS/10 ML VIAL SQ SCH (09:00)
[2021-05-22] MEDS: FAMOTIDINE 20 MG TABLET PO SCH (09:03)
[2021-05-22] MEDS: CHOLECALCIFEROL 1,000 UNIT TABLET PO SCH (09:03)
[2021-05-22] MEDS: DOCUSATE SODIUM 100 MG CAPSULE PO SCH (09:03)
[2021-05-22] MEDS: MULTIVIT, IRON, MIN NO. 8, FA TABLET PO SCH (09:03)
[2021-05-22] MEDS: LISINOPRIL 5 MG TABLET PO SCH (09:04)
[2021-05-22] MEDS: FUROSEMIDE 20 MG TABLET PO SCH (09:05)
[2021-05-22] MEDS: CLOPIDOGREL 75 MG TABLET PO SCH (09:05)
[2021-05-22] MEDS: CHLORHEXIDINE GLUCONATE 15 ML MOUTHWASH MM SCH (09:15)
[2021-05-22 11:33] VITALS: BP 125/73
[2021-05-22] MEDS ORDERED: PIPE3.379 IV (11:39)
[2021-05-22] MEDS ORDERED: BENZ-38 PO (11:39)
[2021-05-22] MEDS: ALBUTEROL SULFATE 2.5 MG/ 0.5 ML NEBU NEB PRN (15:27)
[2021-05-22] MEDS: IPRATROPIUM BROMIDE 0.5 MG/2.5 ML NEBU NEB PRN (15:27)
[2021-05-22 15:43] VITALS: BP 126/75
--- NOTE | 2021-05-22 16:18 | NUR ---
Pt discharged, transportation picked up for transfer to Center at [facility]. report given to nurse at [facility] over the phone. Discharge summary and instructions sent with patient. No signs of distress.
[2021-05-22] MEDS ORDERED: METFORMIN HCL 500 MG TABLET PO SCH (18:00)
== END 2021-05-22 16:10 | DRG 137 ==
LOC: ER 09:22 → TRANSITION 14:08 → TELE3 14:51 → MEDSURG3 05-21 10:55
PROVIDERS: ADMIT Internal Medicine; ATTEND Nurse Practitioner Acute Care
DX: J69.0 Pneumonitis due to inhalation of food and vomit (principal); D68.59 Other primary thrombophilia; E11.42 Type 2 diabetes mellitus with diabetic polyneuropathy; J39.8 Other specified diseases of upper respiratory tract; L03.115 Cellulitis of right lower limb; D64.9 Anemia, unspecified; I48.0 Paroxysmal atrial fibrillation; I11.0 Hypertensive heart disease with heart failure; I50.32 Chronic diastolic (congestive) heart failure; E66.9 Obesity, unspecified; E78.5 Hyperlipidemia, unspecified; G89.29 Other chronic pain; K21.9 Gastro-esophageal reflux disease without esophagitis; R13.10 Dysphagia, unspecified; Z86.16 Personal history of COVID-19; Z20.822 Contact with and (suspected) exposure to COVID-19; Z74.09 Other reduced mobility; Z86.73 Personal history of transient ischemic attack (TIA), and cerebral infarction without residual deficits; Z87.440 Personal history of urinary (tract) infections; Z87.01 Personal history of pneumonia (recurrent); G47.30 Sleep apnea, unspecified; M19.90 Unspecified osteoarthritis, unspecified site; Z79.4 Long term (current) use of insulin; M43.16 Spondylolisthesis, lumbar region; Z68.26 Body mass index [BMI] 26.0-26.9, adult
CPT/HCPCS: 36415; 70030-TC; 71045; 72100; 83735; 84100; 84153; 84443; 85025; 87040; 87070; 87086; 93005; 93307; 94640; A4663; G0378; J1815; J1956; J2543; J3590; J7050; J7060

== ENCOUNTER 2021-10-18 13:33 | Inpatient (IN) | payer OTHER ==
[~2021-10-18] VITALS: Ht 167.6 cm; Wt 74.8 kg
[~2021-10-18 13:33] MED LIST changes: +BENZ-38 PO; -CEPH500C2 PO; -DILT30TA2 PO; -INSU100C SQ; -MAGN400O6 PO; -NPH,100V SQ; +PIPE3.379 IV
[2021-10-18] MEDS ORDERED: GLIM1TAB PO (13:59)
[2021-10-18 14:18] LABS: HEMATOCRIT 39.4 % (36.7-47.1); MEAN CORPUSCULAR HEMOGLOBIN 32.1 uug (23.8-33.4); MEAN CORPUSCULAR VOLUME 95.2 fL (73.0-96.2); PLATELET COUNT (AUTO) 216 K/uL (152-348)
[2021-10-18 14:19] LABS: CREATININE 0.9 mg/dL (0.6-1.3); POTASSIUM 3.8 mmol/L (3.5-5.1)
[2021-10-18 14:53] LABS: BILIRUBIN,DIRECT 0.1 mg/dL (0.0-0.2); BILIRUBIN,TOTAL 0.3 mg/dL (0.2-1.0); TOTAL PROTEIN, SERUM 7.3 g/dL (6.4-8.2)
--- NOTE | 2021-10-18 17:00 | NUR ---
LUNCH TRAY PROVIDED. PT IS EATING WITH GOOD APETITE.
--- NOTE | 2021-10-18 17:30 | NUR ---
PT TRANSFERED TO FLOOR IN STABLE CONDITION. PT REMAINED CALM AND COMFORTABLE THE WHOLE ER STAY.
[2021-10-18 18:17] VITALS: BP 168/76
--- NOTE | 2021-10-18 18:42 | NUR ---
Patient arrived on unit from ER ambulatory. Patient was able to ambulate from gurney to bed with little to no assistance. Patient vitals upon admission, 168/76, 97% on room air, HR of 79, and 97.7 temperature. Admission packet completed. Patient answered questions best to their ability. 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 Left face showed minor dropping due to muscle paralysis. IV site on left hand 20 G. IV site patent and intact. Will endorse information to PM nurse. Bed left in lowest position with call light within reach.
[2021-10-18 20:00] VITALS: BP 144/64
[2021-10-18] MEDS ORDERED: MAGNESIUM HYDROXIDE 30 ML LIQUID UDC PO PRN (20:00)
[2021-10-18] MEDS ORDERED: BISACODYL 10 MG SUPP.RECT RC PRN (20:00)
[2021-10-18] MEDS ORDERED: MORPHINE SULFATE 2 MG/1 ML DISP.SYRIN IV PRN (20:00)
[2021-10-18] MEDS ORDERED: ACETAMINOPHEN 325 MG TABLET PO PRN (20:00)
[2021-10-18] MEDS ORDERED: MIRALAX 17 GM POWD.PACK PO PRN (20:00)
[2021-10-18] MEDS ORDERED: Medication Not On Formulary EA (Diphenhydramine Hcl (Benadryl) 25 MG) PO SCH (20:00)
[2021-10-18] MEDS ORDERED: ONDANSETRON HCL 4 MG TABLET PO PRN (20:00)
[2021-10-18] MEDS ORDERED: HYDROCODONE/APAP 5-325MG TABLET PO PRN (20:00)
[2021-10-18] MEDS ORDERED: MELATONIN 3 MG TABLET PO PRN (20:00)
[2021-10-18] MEDS ORDERED: diphenhydrAMINE 25 MG CAP PO PRN (20:30)
[2021-10-18] MEDS ORDERED: FAMOTIDINE 20 MG TABLET PO SCH (21:00)
[2021-10-18] MEDS ORDERED: Medication Not On Formulary EA (Pregabalin (Lyrica) 75 MG) PO SCH (22:00)
[2021-10-18] MEDS: PREGABALIN 25 MG CAPSULE PO SCH (22:08)
[2021-10-18] MEDS: ATORVASTATIN 40 MG TABLET PO SCH (22:08)
[2021-10-18] MEDS: DOCUSATE SODIUM 250 MG CAPSULE PO SCH (22:09)
[2021-10-18] MEDS: SUCRALFATE 1 G TABLET PO SCH (22:09)
[2021-10-19 04:00] VITALS: BP 139/79
--- NOTE | 2021-10-19 06:23 | NUR ---
Received to care, lying in bed, pleasant, and calm, on room air, and call light in reach, no distress noted. Uses front wheel walker, breathing treatment given last night.He has slept pretty well, most of the night, and has remained pain free, and encouraged to use the call light, for any needs. Will continue to monitor closely.
[2021-10-19 06:39] LABS: HEMATOCRIT 39.5 % (36.7-47.1); MEAN CORPUSCULAR HEMOGLOBIN 32.9 uug (23.8-33.4); MEAN CORPUSCULAR VOLUME 94.8 fL (73.0-96.2); PLATELET COUNT (AUTO) 212 K/uL (152-348)
[2021-10-19] MEDS: PANTOPRAZOLE SODIUM 40 MG TABLET.DR PO SCH ×2 (06:48→16:09)
[2021-10-19] MEDS: PREGABALIN 25 MG CAPSULE PO SCH ×3 (06:48→21:33)
[2021-10-19 07:35] LABS: MAGNESIUM 2.1 mg/dL (1.8-2.4); PHOSPHOROUS 3.9 mg/dL (2.5-4.9); POTASSIUM 3.8 mmol/L (3.5-5.1)
[2021-10-19 08:27] LABS: THYROID STIMULATING HORMONE 2.031 mIU/mL (0.358-3.740)
[2021-10-19] MEDS: CLOPIDOGREL 75 MG TABLET PO SCH (08:59)
[2021-10-19] MEDS: SUCRALFATE 1 G TABLET PO SCH ×4 (08:59→20:37)
[2021-10-19] MEDS: FUROSEMIDE 20 MG TABLET PO SCH (08:59)
[2021-10-19] MEDS: DOCUSATE SODIUM 250 MG CAPSULE PO SCH ×2 (08:59→20:37)
[2021-10-19] MEDS ORDERED: GABAPENTIN 100 MG CAPSULE PO SCH (09:00)
[2021-10-19] MEDS ORDERED: Medication Not On Formulary EA (Multivitamins W-Minerals (Multivitamin With Minerals) 1 PO SCH (09:00)
[2021-10-19] MEDS: MULTIVIT, IRON, MIN NO. 8, FA TABLET PO SCH (09:00)
[2021-10-19] MEDS: GLIMEPIRIDE 2 MG TABLET PO SCH (09:00)
[2021-10-19] MEDS ORDERED: Medication Not On Formulary EA (Glimepiride (Amaryl) 1 MG) PO SCH (09:00)
[2021-10-19] MEDS: LISINOPRIL 5 MG TABLET PO SCH (09:03)
[2021-10-19 12:01] VITALS: BP 125/64
[2021-10-19 16:01] VITALS: BP 150/69
[2021-10-19] MEDS ORDERED: ALBUTEROL SULFATE 2.5 MG/ 0.5 ML NEBU NEB PRN (17:00)
--- NOTE | 2021-10-19 17:18 | NUR ---
RT notified to perform breathing treatment for patient PM. Will endorse information to PM nurse
--- NOTE | 2021-10-19 18:12 | NUR ---
Patient resting in bed comfortably but still complaining of slight chest pain rated at 2/10. Patient on room air and saturating at 96%. Patient to receive PM breathing treatment. IV site intact and patent. Bed left in lowest position with call light within reach. Will endorse information to PM nurse
[2021-10-19 20:00] VITALS: BP 140/83
[2021-10-19] MEDS: ATORVASTATIN 40 MG TABLET PO SCH (20:37)
--- NOTE | 2021-10-19 21:18 | NUR ---
AAOx4 Admitted for chest pain. Ambulates to the BR. Voiding well. All due meds given. Denies any chest pain nor any discomfort. All Needs attended. VSS. Kept comfortable. Will monitor patient.
[2021-10-20 04:00] VITALS: BP 136/70
[2021-10-20] MEDS: PREGABALIN 25 MG CAPSULE PO SCH ×2 (05:26→13:29)
[2021-10-20] MEDS: PANTOPRAZOLE SODIUM 40 MG TABLET.DR PO SCH (06:11)
[2021-10-20] MEDS: SUCRALFATE 1 G TABLET PO SCH ×2 (07:41→11:44)
[2021-10-20] MEDS: CLOPIDOGREL 75 MG TABLET PO SCH (08:49)
[2021-10-20] MEDS: DOCUSATE SODIUM 250 MG CAPSULE PO SCH (08:49)
[2021-10-20] MEDS: GLIMEPIRIDE 2 MG TABLET PO SCH (08:49)
[2021-10-20] MEDS: FUROSEMIDE 20 MG TABLET PO SCH (08:49)
[2021-10-20] MEDS: MULTIVIT, IRON, MIN NO. 8, FA TABLET PO SCH (08:50)
[2021-10-20] MEDS: LISINOPRIL 5 MG TABLET PO SCH (08:54)
[2021-10-20 11:34] VITALS: BP 125/66
[2021-10-20] MEDS ORDERED: SUCR1TAB31 PO (12:13)
[2021-10-20] MEDS ORDERED: ATOR10TA PO (12:13)
[2021-10-20] MEDS ORDERED: IPRA3AMP23 IH (12:13)
[2021-10-20] MEDS ORDERED: PANT40TA49 PO (12:13)
[2021-10-20] MEDS ORDERED: CELE100C PO (12:13)
--- NOTE | 2021-10-20 15:35 | NUR ---
Patient discharged from unit at 1534. Patient to be transferred back to [facility]. Report called and given to Gracie Sosa RN. Discharge education provided. IV site removed. ID badge removed.
== END 2021-10-20 15:34 | DRG 243 ==
LOC: ER 13:33 → TELE3 17:38 → MEDSURG3 10-19 07:25
PROVIDERS: ADMIT Internal Medicine; ATTEND Internal Medicine
DX: K21.00 Gastro-esophageal reflux disease with esophagitis, without bleeding (principal); D68.59 Other primary thrombophilia; E11.42 Type 2 diabetes mellitus with diabetic polyneuropathy; J39.8 Other specified diseases of upper respiratory tract; K22.10 Ulcer of esophagus without bleeding; L03.115 Cellulitis of right lower limb; E66.9 Obesity, unspecified; I48.0 Paroxysmal atrial fibrillation; M94.0 Chondrocostal junction syndrome [Tietze]; I25.10 Atherosclerotic heart disease of native coronary artery without angina pectoris; Z74.09 Other reduced mobility; E78.5 Hyperlipidemia, unspecified; G89.29 Other chronic pain; I11.0 Hypertensive heart disease with heart failure; I50.32 Chronic diastolic (congestive) heart failure; Z86.73 Personal history of transient ischemic attack (TIA), and cerebral infarction without residual deficits; Z79.1 Long term (current) use of non-steroidal anti-inflammatories (NSAID); R13.10 Dysphagia, unspecified; Z20.822 Contact with and (suspected) exposure to COVID-19; Z86.16 Personal history of COVID-19; M17.0 Bilateral primary osteoarthritis of knee; Z68.26 Body mass index [BMI] 26.0-26.9, adult; Z79.84 Long term (current) use of oral hypoglycemic drugs; M54.10 Radiculopathy, site unspecified
CPT/HCPCS: 36415; 70030-TC; 71045; 83550; 83690; 83735; 84100; 84443; 85025; 93005; 94664; 94760; A4663; G0378